=== PATIENT | male | born 1950 | race Caucasian/White ===

== ENCOUNTER 2017-01-20 17:16 | Inpatient (IN) | payer OTHER ==
--- NOTE | ~2017-01-20 | CATHLAB ---
[facility] [address] [place] [address] INVASIVE PROCEDURE REPORT Name: MARCIN BAGLEY Radha Room #: 204-P [facility] IN [facility]#: [id number] Admission: 01/20/17 Attend Phys: Sumit Cooper, Discharge: Date of : 54 Date of Service: 01/21/17 1904 Report #: [id number] THIS REPORT FOR: //name// APPROVED REPORT Patient Details Patient Status: In-Patient Room #: The patient is a 66 year-old male Event Personnel Sumit Cooper Street Commissioner, , Chloe Stanton Monitor, Herbert Magallon RN, Momo Frost Scrub Procedures Performed Art Access - R femoral artery* 23561 Initial Mod Sed Same Phys/QHP Gr5y 229616 52250 Mod Sed Same Phys/QHP Ea 740567 Left Heart Cath w/or w/o Coronaries [id number] [facility] JUL[address]SA Place w/wo Plasty Single RCA 366470 Hemostasis w/ Mynx Indication Non-STEMI , Chest pain Risk Factors Arterial HypertensionDysplipidemia Admission/Lab Medications/Medications given during procedure Aspirin, Glycoprotein IllbIlla Inhibitors, Lipid Lowering Agents, Platelet Aff. Inhib., Beta BlockerHeparin Unfract. Procedure Narrative The patient was brought urgently to the Cardiac Catheterization Laboratory and was prepped and draped in a sterile manner. The Right Groin^ was infiltrated with 1% Lidocaine subcutaneous anesthesia. A PINNACLE 6FR Sheath #[id number] sheath was inserted into the RFA^. Coronary angiography was performed using coronary diagnostic catheters. The right coronary system was accessed and visualized with a JR 4 catheter. The left coronary system was accessed and visualized with a JL 4 catheter. The left ventricle was accessed and visualized with a Pigtail catheter. Left ventricular/Aortic Valve gradient assessed via catheter pullback. Left ventriculogram was performed in LEWIS projection. Closure device was deployed with a 6 Fr Mynx. The patient tolerated the procedure well and there were no complications associated with the procedure. There was no hematoma. Intraoperative Conscious Sedation [facility] [address] [place] [address] INVASIVE PROCEDURE REPORT Name: MARCIN BAGLEY Room #: 204-P [facility]#: [id number] Admission: 01/20/17 Attend Phys: Sumit Cooper, Discharge: Date of : 54 Date of Service: 01/21/17 1904 Report #: [id number] Sedation start time: 07:37 Case end Time: 08:29 Fentanyl 25.0 mcg Versed 2.0 mg 1308 Fluoro Time: 7.17 minutes Dose: DAP 97229.40 cGycm2 1308 mGy Contrast Type and Amount: Omnipaque 160 ml Coronary Angiography The patient's coronary anatomy is right dominant. Diagnostic Cath Left Main Minimal distal plaquing LAD 10-20% proximal plaquing Diagonal 1 Large, single diagonal branch, angiographically normal Circumflex Large but anatomically nondominant. Proximal circumflex minimal plaquing OM1 Large first marginal angiographically normal OM2 Relatively small with moderate 30% proximal plaquing OM3 Very small and angiographically normal Right Coronary Large dominant right coronary with a severe 99% mid vessel stenosis, followed by a 75% mid vessel stenosis R PDA Large posterior descending branch, angiographically normal RPLV Large posterior lateral branch, angiographically normal Left Ventriculography The left ventricle is normal in size with normal contractility. The left ventricular ejection fraction is estimated to be 55-60%. Left ventricular wall motion abnormalities are not present. There is no mitral insufficiency. Hemodynamics The aortic pressure is 144/65 mmHg with a mean of 91 mmHg. The left ventricular pressure is 165/1 mmHg with a mean of mmHg. The left ventricular end diastolic pressure is 20 mmHg. Pullback from the left ventricle to the aorta revealed no gradient across the aortic valve. PCI Technique The mid right coronary was predilated then stented with a 4.0 x 26 mm Resolute medicated stent covering both tandem stenoses. There was a mid vessel dissection following angioplasty, covered completely by the stent. The stent was postdilated with a 4.0 x 12 mm ID Robert, [facility] [address] [place] [address] INVASIVE PROCEDURE REPORT Name: MARCIN BAGLEY Room #: 204-P [facility] IN .R.#: [id number] Admission: 01/20/17 Attend Phys: Sumit Cooper, Discharge: Date of : 54 Date of Service: 01/21/17 1904 Report #: [id number] inflated in upwards of 22 amber to 4.25 mm. 0% residual stenosis remained at both sites with ALBERT-3 flow maintained in the vessel. PCI Technique Lesion Anticoagulation was achieved with Heparin, Integrilin. Patient was preloaded with Effient. Percutaneous coronary intervention was performed on the mid right coronary artery. The lesion stenosis prior to intervention was 99% with ALBERT 3 flow. A LAUNCHER 6FR JR 4 #[id number] Guide Catheter was used to engage the RCA ostium. A Luge Wire .014 x 182CM #[id number] Interventional Guidewire was used to cross the lesion. BALLOON DILATION A Balloon catheter Mozec 4 x 14 was inserted and inflated up to 8.00atm for 28seconds. Repeat angiography revealed the following post-dilatation results: moderate residual stenosis, normal flow. Additional Inflation: 6.00atm for 18seconds. STENT DEPLOYMENT A drug-eluting stent RESOLUTE RX 4.0 X 26 #[id number] was inserted and inflated up to 15.00atm for 30seconds. POST STENT DEPLOYMENT BALLOON DILATION A Balloon catheter TREK NC RX 4.0 X 12 #[id number] was inserted and inflated up to 18.00atm for 25seconds. Additional Inflation: 22.00atm for 30seconds. Additional Inflation: 22.00atm for 30seconds. Final angiography reveals 0 % stenosis with ALBERT 3 flow. Conclusion 1. Normal global and regional left ventricular systolic function. EF 65% 2. Minimal left main plaquing 3. Mild plaquing in the left anterior descending and circumflex 4. Critical mid right coronary stenosis successfully stented with a 4.0 x 26 mm Resolute medicated stent, postdilated to 4.25 mm Recommendations Daily ASA with Plavix for at least one year Cardiac Rehabilitation Referral Aggressive Medical Therapy Medications Administered Aspirin (any) [facility] [address] [place] [address] INVASIVE PROCEDURE REPORT Name: MARCIN BAGLEY Room #: 204-P [facility]#: [id number] Admission: 01/20/17 Attend Phys: Sumit Cooper, Discharge: Date of : 54 Date of Service: 01/21/171903 Report #: [id number] Beta Meeta (any) Statin (any) Clopidogrel Cardiac Rehabilitation Referral <ELECTRONICALLY SIGNED> By: Sumit Cooper MD, FACC 01/21/171903 03 03 Sumit Cooper MD, FACC /INF
--- NOTE | ~2017-01-20 | EKG ---
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 PRYOR : 1950 Requested By: Sumit Cooper Order Number: [id number] MD: Braxton Harper Measurements Intervals [place] Rate: 60 P: 34 [place]: 177 QRS: -29 QRSD: 112 T: -5 QT: 417 QTc: 417 Interpretive Statements Sinus rhythm Probable left atrial enlargement Abnormal R-wave progression, early transition Left ventricular hypertrophy Borderline T abnormalities, inferior leads Electronically Signed On 01-20-2017 21:30:27 RIBBON HANKING MACHINE OPERATOR by Braxton Harper [email or web address] <ELECTRONICALLY SIGNED> By: Braxton Harper MD 01/20/172129 03 03 Braxton Harper MD /CHANTELLE
--- NOTE | ~2017-01-20 | EKG ---
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: GR : 1950 Requested By: Sumit Cooper Order Number: [id number] MD: Braxton Harper Measurements Intervals [place] Rate: 51 P: 30 NM: 176 QRS: -29 QRSD: 110 T: -26 QT: 456 QTc: 420 Interpretive Statements Sinus rhythm Probable left atrial enlargement Borderline left axis deviation Abnormal R-wave progression, early transition Nonspecific T abnormalities, inferior leads Compared to ECG 01/20/2017 19:04:14 Left ventricular hypertrophy no longer present T-wave abnormality still present Electronically Signed On 01-23-2017 12:20:27 GLOBAL SECURITY ARCHITECT by Braxton Harper [email or web address] <ELECTRONICALLY SIGNED> By: Braxton Harper MD 01/23/17 1220 0556 0556 Braxton Harper MD /EPI
--- NOTE | ~2017-01-20 | D ---
[facility] [place] [address] DISCHARGE SUMMARY Name: MARCIN BAGLEY Room #: 204-P [facility]..#: [id number] Admission: 01/20/17 Attend Phys: Sumit Cooper MD, Discharge: 01/22/17 Date of : 54 Report #: [id number] THIS REPORT FOR: //name// CC: Kevin Norman DO Sumit Cooper DISCHARGE DIAGNOSES: 1. Non-Q-wave myocardial infarction. 2. Severe mid right coronary artery disease stented with a 4.0 x 26 mm Resolute medicated stent; normal left ventricular systolic function. 3. Hypertension. 4. Dyslipidemia. HISTORY OF PRESENT ILLNESS: For the complete details of the history of present illness, see dictated history and physical. Briefly, the patient is a 66-year-old gentleman who presents with a history of exertional midsternal chest tightness. The patient's stress study was markedly abnormal with exercise-induced injury pattern. He was admitted for further evaluation. HOSPITAL COURSE: The patient was admitted. His initial cardiac troponin was minimally elevated at 0.08. EKG was normal. He underwent coronary angiography demonstrating normal left ventricular systolic function, mild plaquing in the LAD and circumflex and a critical 99% mid right coronary stenosis and a dominant vessel. This was successfully ballooned and stented with a 4.0 x 26 mm Resolute medicated stent, postdilated to 4.25 mm with a noncompliant balloon. Post-procedure course was uneventful. He was treated with heparin, Integrilin, aspirin and Effient in the periprocedural setting. He is ambulating and pain free at the time of discharge. Lipid profile on admission demonstrated a total cholesterol of 152, LDL 65, HDL 46, triglycerides 207. DISCHARGE MEDICINES: Reconciled, medicines include fluoxetine 20 mg daily, Bystolic 10 mg daily, simvastatin 40 mg daily, Zetia 10 mg daily, clonazepam 0.5 mg twice daily, aspirin 1 a day, pantoprazole 40 mg daily and Plavix 75 mg daily. Arrangements were made for outpatient cardiac rehabilitation. DISCHARGE DIET: Low fat, low cholesterol, no added salt. DISCHARGE ACTIVITY: As tolerated post-stenting. DISCHARGE FOLLOWUP: With Dr. Kevin Norman as previously arranged, followup with myself in [address] [address] DISCHARGE SUMMARY Name: MARCIN BAGLEY Room #: 204-P [facility].#: [id number] Admission: 01/20/17 Attend Phys: Sumit Cooper MD, Discharge: 01/22/17 Date of : 54 Report #: [id number] DISCHARGE CONDITION: Stable and improved. <ELECTRONICALLY SIGNED> By: Sumit Cooper MD, [facility] 01/24/17 1436 0906 1003 Sumit Cooper MD, FACC /nt
--- NOTE | ~2017-01-20 | H ---
[facility] [place] [address] HISTORY AND PHYSICAL Name: MARCIN BAGLEY Room #: 204-P [facility] IN ..#: [id number] Admission: 01/20/17 Attend Phys: Sumit Cooper MD, Discharge: 01/22/17 Date of : 54 Report #: [id number] THIS REPORT FOR: //name// CC: Kevin Norman DO Sumit Cooper REASON FOR ADMISSION: Chest pain, markedly abnormal stress study. HISTORY OF PRESENT ILLNESS: The patient is a 66-year-old gentleman with history of hypertension and dyslipidemia. Since October, he has noticed a midsternal chest burning. This first occurred while he was raking leaves. The pain became more pronounced and occurred with activity, such as walking on a flat surface. Pain typically is relieved by rest. He developed some shortness of breath and radiation to the arms with the discomfort. He was referred for a stress study today, which was notable for the development of this chest discomfort, but also exercise induced ST elevation in V2 through V6. Resting echocardiographic images were normal. Post-exercise, he developed fairly extensive region of inferior wall akinesis. His pain resolved several minutes into the recovery phase without specific treatment. He denies heart failure symptoms including orthopnea, paroxysmal nocturnal dyspnea or lower extremity edema. No history of palpitations, near syncope or syncope. Given the strikingly abnormal stress study and progression of symptoms, he is now admitted for further evaluation. ALLERGIES: There are no known drug allergies. MEDICATIONS: Fluoxetine 20 mg daily, Bystolic 10 mg daily, simvastatin 40 mg daily, Zetia 10 mg daily, clonazepam 0.5 mg twice daily, pantoprazole 40 mg daily. PAST MEDICAL HISTORY: Medical records have been reviewed and include a history of cholecystectomy, carpal tunnel release on both hands, tonsillectomy, vasectomy. SOCIAL HISTORY: He has never been a smoker. 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 FAMILY HISTORY: Unremarkable for premature coronary artery disease. REVIEW OF SYSTEMS: All systems negative except as that noted above. PHYSICAL EXAMINATION: GENERAL: A pleasant gentleman in no distress. VITAL SIGNS: Blood pressure is 140/90, heart rate of 69 and regular, respirations unlabored at 18. HEENT: There are neither xanthelasma, subcutaneous xanthomata, oral mucosal or digital cyanosis or kyphoscoliosis present. [facility] [address] [place] [address] HISTORY AND PHYSICAL Name: MARCIN BAGLEY Room #: 204-P [facility] IN [facility].#: [id number] Admission: 01/20/17 Attend Phys: Sumit Cooper MD, Discharge: 01/22/17 Date of : 54 Report #: [id number] CHEST: Clear to auscultation and percussion. CARDIAC: Regular rate and rhythm with normal S1, S2. No murmurs, gallops or rubs. ABDOMEN: Soft and nontender. EXTREMITIES: Without cyanosis, clubbing or edema. Radial pulses are 2+. NEUROLOGIC: Alert with a nonfocal exam. LABORATORY DATA: EKG normal sinus rhythm with early precordial R-wave progression. IMPRESSION: 1. Progression of chest pain consistent with unstable angina versus non-Q-wave myocardial infarction. 2. Hypertension. 3. Dyslipidemia. RECOMMENDATIONS: 1. Therapy with nitrates, aspirin, continued use of beta blockade. 2. Coronary angiography. The angiographic procedure was discussed in detail including its associated risks. After a thorough discussion of the procedure, its risks and alternatives and after answering his questions in detail, he is agreeable to proceeding. There are no contraindications to dual antiplatelet therapy. His pain has persisted despite an aggressive pharmacologic regimen. <ELECTRONICALLY SIGNED> By: Sumit Cooper MD, FACC 01/24/17 1435 1657 1722 Sumit Cooper MD, FACC /nt
--- NOTE | ~2017-01-20 | EKG ---
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
[~2017-01-20 17:16] MED LIST: BYSTOLIC 5 MG5 M1 PO; DICLOFENAC SODI75 MG PO; FISH OIL 1,001000 M2 PO; PROTONIX40 M1 PO; ZETIA10 MG PO; ZOCOR40 MG PO
[2017-01-20 18:37] VITALS: BP 149/86
[2017-01-20 20:24] LABS: HEMATOCRIT 44.3 % (42.0-52.0); HEMOGLOBIN 14.9 gm/dL (14.0-18.0); MCH 30.1 pg (26.0-34.0); MCHC 33.6 g/dL (28.0-37.0); MCV 89.6 fL (80.0-100.0); RBC 4.95 mil/uL (4.50-6.00); RDW 14.1 % (10.5-14.5); WBC 10.4 thou/uL (4.0-11.0)
[2017-01-20 20:36] LABS: PROTIME 10.1 Seconds (9.3-11.4)
[2017-01-20 20:48] LABS: ANION GAP 9 mmol/L (7-16); BUN 24 mg/dL (7-18); CALCIUM 8.7 mg/dL (8.5-10.1); CHLORIDE 108 mmol/L (98-107); CHOLESTEROL 152 mg/dL (<200); CO2 25 mmol/L (21-32); CREATININE 1.1 mg/dL (0.7-1.3); GLUCOSE 116 mg/dL (74-106); HDL CHOLESTEROL 46 mg/dL (>40); LDL CHOLESTEROL 65 mg/dL (<100); POTASSIUM 4.2 mmol/L (3.5-5.1); SODIUM 142 mmol/L (136-145); TC:HDL 3.3 Ratio (Not establshd); TRIGLYCERIDE 207 mg/dL (<150); TROPONIN-I 0.08 ng/mL (<0.06); VLDL 41 mg/dL (<40)
[2017-01-20 23:38] VITALS: BP 146/80
[2017-01-21] VITALS (12 sets, daily range): BP systolic 124–149; BP diastolic 63–73
[2017-01-21] MEDS ORDERED: PLAVIX 75 MG TA75 M1 PO (16:43)
[2017-01-21] MEDS ORDERED: ASPIRIN EC81 M1 PO (16:43)
[2017-01-22 03:55] LABS: HEMOGLOBIN 14.5 gm/dL (14.0-18.0); MCH 29.6 pg (26.0-34.0); MCV 89.6 fL (80.0-100.0); RBC 4.91 mil/uL (4.50-6.00); RDW 14.3 % (10.5-14.5); WBC 9.2 thou/uL (4.0-11.0)
[2017-01-22 04:07] VITALS: BP 126/68
[2017-01-22 04:11] LABS: CALCIUM 8.4 mg/dL (8.5-10.1); POTASSIUM 4.1 mmol/L (3.5-5.1); TROPONIN-I 0.27 ng/mL (<0.06)
[2017-01-22 07:39] VITALS: BP 132/72
[2017-01-22] MEDS ORDERED: COZAAR 25 MG TA25 M1 PO (09:47)
[2017-01-22 09:49] VITALS: BP 132/72
== END 2017-01-22 10:54 | disposition home or self-care (01) | DRG 247 ==
LOC: 2N 17:16 → ENTRNSPT 01-22 10:35 → 2N 01-22 10:54
PROVIDERS: Internal Medicine
PROC: B2111ZZ Fluoroscopy of Multiple Coronary Arteries using Low Osmolar Contrast (ICD-10-PCS; principal; 2017-01-21)
PROC: 027034Z Dilation of Coronary Artery, One Artery with Drug-eluting Intraluminal Device, Percutaneous Approach (ICD-10-PCS; principal; 2017-01-21)
PROC: B2151ZZ Fluoroscopy of Left Heart using Low Osmolar Contrast (ICD-10-PCS; principal; 2017-01-21)
PROC: 4A023N7 Measurement of Cardiac Sampling and Pressure, Left Heart, Percutaneous Approach (ICD-10-PCS; principal; 2017-01-21)
DX: I21.4 Non-ST elevation (NSTEMI) myocardial infarction (principal); I10 Essential (primary) hypertension; E78.5 Hyperlipidemia, unspecified; I25.110 Atherosclerotic heart disease of native coronary artery with unstable angina pectoris; Z90.49 Acquired absence of other specified parts of digestive tract; Z98.52 Vasectomy status
CPT/HCPCS: 10081

== ENCOUNTER 2018-03-04 16:59 | Emergency (ER) | payer OTHER ==
[~2018-03-04] VITALS: Ht 177.8 cm; Wt 103.9 kg
[~2018-03-04 16:59] MED LIST changes: +ASPIRIN EC81 M1 PO; +COZAAR 25 MG TA25 M1 PO; +PLAVIX 75 MG TA75 M1 PO
[2018-03-04] MEDS ORDERED: COZAAR 25 MG TA25 M1 PO (17:07)
[2018-03-04] MEDS ORDERED: FISH OIL 1,001000 M2 PO (17:08)
[2018-03-04 17:37] LABS: ABSOLUTE NEUTROPHILS 5.1 thou/uL (1.4-8.2); BASOPHILS 0.8 % (0.0-2.0); HEMATOCRIT 44.3 % (42.0-52.0); HEMOGLOBIN 15.3 gm/dL (14.0-18.0); LYMPHOCYTES 19.9 % (24.0-44.0); MCH 29.9 pg (26.0-34.0); MCHC 34.5 g/dL (28.0-37.0); MCV 86.7 fL (80.0-100.0); MONOCYTES 6.9 % (1.0-8.0); PLATELET COUNT 151 thou/uL (150-400); POLYS 68.4 % (36.0-66.0); RBC 5.11 mil/uL (4.50-6.00); RDW 14.8 % (10.5-14.5); WBC 7.5 thou/uL (4.0-11.0)
[2018-03-04 17:46] LABS: ANION GAP 12 mmol/L (7-16); BUN 21 mg/dL (7-18); CALCIUM 8.7 mg/dL (8.5-10.1); CHLORIDE 106 mmol/L (98-107); CO2 24 mmol/L (21-32); CREATININE 1.2 mg/dL (0.7-1.3); GLUCOSE 137 mg/dL (74-106); SODIUM 142 mmol/L (136-145)
[2018-03-04 17:54] LABS: TROPONIN-I <0.06 ng/mL (<0.06)
[2018-03-04] MEDS ORDERED: COZAAR100 MG PO (18:03)
[2018-03-04 18:25] VITALS: BP 171/91
--- NOTE | 2018-03-05 07:44 | EKG ---
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: : 1950 Requested By: Silvia Garcia Order Number: [id number] MD: Garfield Herron Measurements Intervals [place] Rate: 56 P: 41 AR: 178 QRS: -22 QRSD: 110 T: 31 QT: 431 QTc: 416 Interpretive Statements Sinus rhythm Probable left atrial enlargement Borderline left axis deviation Abnormal R-wave progression, early transition Compared to ECG 01/22/2017 05:56:25 T-wave abnormality no longer present Electronically Signed On 03-05-2018 7:44:31 MOTOR VEHICLE SALESPERSON by Garfield Herron [email or web address] <ELECTRONICALLY SIGNED> By: Garfield Herron MD 03/05/18 0744 D: [id number] 17 Garfield eHrron MD /CHANTELLE
== END 2018-03-04 18:26 | disposition home or self-care (01) ==
LOC: ER 16:59
PROVIDERS: Emergency Medicine
DX: I10 Essential (primary) hypertension (principal); K21.9 Gastro-esophageal reflux disease without esophagitis; E78.00 Pure hypercholesterolemia, unspecified; Z90.49 Acquired absence of other specified parts of digestive tract

== ENCOUNTER → 2018-10-25 | Outpatient (CLI) | payer OTHER ==
[~2018-10-25] MED LIST changes: +COZAAR100 MG PO
--- NOTE | 2018-10-25 16:12 | EXE ---
[facility] [address] [place] [address] STRESS ECHOCARDIOGRAM Name: MARCIN BAGLEY Room #: REG [facility] Harrison#: [id number] Admission: 10/25/18 Attend Phys: Sumit Cooper, Discharge: Date of : 54 Date of Service: 10/25/18 1612 Report #: [id number] THIS REPORT FOR: //name// APPROVED REPORT Study performed: 10/25/2018 14:17:41 Exam: Stress Echocardiogram Indication: CAD s/p PCI Patient Location: Out-Patient Stress Nurse: Urvashi APONTE Room #: Echo lab 2 Status: routine Ht: 5 ft 10 in HR: 64 bpm BP: 144/84 mmHg Rhythm: NSR Medical History Medical History: CAD s/p stent Allergies: No known drug allergies Cardiac Risk Factors: HTN, Hyperlipidemia, FHX of CAD Previous Cardiac Procedures: PCI Exercise History: Physically active Procedure The patient underwent an Exercise Stress Test using the Chucho Protocol. Blood pressure, heart rate, and EKG were monitored. An Echocardiogram was performed by event crew technician in four stages in quad fashion. At peak stress, four selected images were obtained and placed side by side with resting images for comparison. Stress Test Details Stress Test: Exercise stress testing was performed using a Chucho protocol. HR Resting HR: 64 bpm Max Heart Rate (APMHR): 154 bpm Max HR Achieved: 162 bpm Target HR (85% APMHR): 130 bpm % of APMHR: 105 Recovery HR: 94 bpm HR response to stress: Normal HR response to stress BP Resting BP: 144/84 mmHg Max BP: 180/62 mmHg [facility] [address] [place] [address] STRESS ECHOCARDIOGRAM Name: MARCIN BAGLEY Room #: REG CL [facility]#: [id number] Admission: 10/25/18 Attend Phys: Sumit Cooper, Discharge: Date of : 54 Date of Service: 10/25/18 1612 Report #: [id number] Recovery BP: 140/60 mmHg BP response to stress: Normal blood pressure response to stress. ECG Resting ECG: Sinus Rhythm Stress ECG: Sinus Tachycardia ST Change: Normal Maximum ST Deviation: 0 mm Arrhythmia: None Recovery ECG: Sinus Rhythm Recovery ST Change: Normal Recovery ST Deviation: 0 mm Recovery Arrhythmia: None Clinical Reason for Termination: Maximal effort Exercise duration: 8 min sec Highest Stage Achieved: Stage 3: 3.4 mph at 14% grade. Exercise capacity: 10.4 METs Overall Exercise Capacity for Age: Good Angina Score: None Stress ECG Conclusion Clinical: Non-ischemic ECG: Non-ischemic Paula Treadmill Score is 8.0 which is Low risk. Pre-Stress Echo The resting Echocardiogram showed normal left ventricular contractility with an estimated Ejection Fraction of about >55%. The resting echocardiogram demonstrated normal wall motion in all wall segments. Post-Stress Echo The stress Echocardiogram showed normal left ventricular contractility with an estimated Ejection Fraction of about 60-65%. Compared to rest, there were no stress-induced wall motion abnormalities. Conclusion Clinical Response: Non-ischemic Exercise Capacity: Average Stress ECG Response: Non-ischemic Stress Echo Images: Non-ischemic The left ventricle is normal in size and wall thickness in both the rest and stress images. [facility] [place] [address] STRESS ECHOCARDIOGRAM Name: MARCIN BAGLEY Room #: REG CL [facility]#: [id number] Admission: 10/25/18 Attend Phys: Sumit Cooper, Discharge: Date of : 54 Date of Service: 10/25/181611 Report #: [id number] Normal stress echocardiogram with maximal exercise stress. Other Information Study Quality: Adequate <Conclusion> The left ventricle is normal in size and wall thickness in both the rest and stress images. Normal stress echocardiogram with maximal exercise stress. <ELECTRONICALLY SIGNED> By: Sumit Cooper MD, FACC 10/25/181611 11 11 Sumit Cooper MD, FACC /INF
== END ==
LOC: CV 11:50
DX: I25.10 Atherosclerotic heart disease of native coronary artery without angina pectoris (principal); I10 Essential (primary) hypertension; E78.5 Hyperlipidemia, unspecified

== ENCOUNTER → 2019-09-20 | Outpatient (CLI) | payer OTHER | LOC: SJCVC 14:59 | PROVIDERS: ATTEND Internal Medicine | DX: R00.1 Bradycardia, unspecified (principal); I10 Essential (primary) hypertension; I25.10 Atherosclerotic heart disease of native coronary artery without angina pectoris; E78.5 Hyperlipidemia, unspecified; I25.2 Old myocardial infarction; Z79.82 Long term (current) use of aspirin; Z79.899 Other long term (current) drug therapy ==

== ENCOUNTER → 2020-03-22 | Outpatient (CLI) | payer OTHER | LOC: SJCVC 10:23 | PROVIDERS: ATTEND Internal Medicine | DX: R00.1 Bradycardia, unspecified (principal); I25.10 Atherosclerotic heart disease of native coronary artery without angina pectoris; I10 Essential (primary) hypertension; E78.5 Hyperlipidemia, unspecified; Z86.16 Personal history of COVID-19; I25.2 Old myocardial infarction; Z79.82 Long term (current) use of aspirin; Z79.899 Other long term (current) drug therapy; Z72.89 Other problems related to lifestyle ==

== ENCOUNTER → 2020-09-23 | Outpatient (CLI) | payer OTHER | LOC: SJCVC 09:40 | PROVIDERS: ATTEND Internal Medicine | DX: R00.1 Bradycardia, unspecified (principal); I25.10 Atherosclerotic heart disease of native coronary artery without angina pectoris; I10 Essential (primary) hypertension; E78.5 Hyperlipidemia, unspecified; Z95.5 Presence of coronary angioplasty implant and graft; I25.2 Old myocardial infarction; Z90.49 Acquired absence of other specified parts of digestive tract; Z79.82 Long term (current) use of aspirin; Z79.899 Other long term (current) drug therapy; Z86.16 Personal history of COVID-19; Z82.49 Family history of ischemic heart disease and other diseases of the circulatory system ==

== ENCOUNTER → 2021-03-26 | Outpatient (CLI) | payer OTHER | LOC: SJCVC 10:39 | PROVIDERS: ATTEND Internal Medicine | DX: R00.1 Bradycardia, unspecified (principal); I25.10 Atherosclerotic heart disease of native coronary artery without angina pectoris; I10 Essential (primary) hypertension; E78.5 Hyperlipidemia, unspecified; Z86.16 Personal history of COVID-19; Z72.89 Other problems related to lifestyle; Z79.82 Long term (current) use of aspirin; Z79.899 Other long term (current) drug therapy ==

== ENCOUNTER → 2021-04-10 | Outpatient (CLI) | payer OTHER | LOC: SJCVCIMAG 07:19 | PROVIDERS: ATTEND Internal Medicine | DX: I35.8 Other nonrheumatic aortic valve disorders (principal); I25.10 Atherosclerotic heart disease of native coronary artery without angina pectoris; I10 Essential (primary) hypertension; E78.5 Hyperlipidemia, unspecified ==